=== PATIENT | female | born 1965 | race Asian ===

== ENCOUNTER 2018-03-31 17:38 | Inpatient (IN) | payer SELFPAY ==
[~2018-03-31] VITALS: Ht 154.9 cm; Wt 54.5 kg
[2018-03-31 18:26] LABS: BASOPHILS % (AUTO) 0.1 % (0.0-2.0); EOSINOPHILS % (AUTO) 0.1 % (1.0-6.0); HEMATOCRIT 39.6 % (36-46); HEMOGLOBIN 13.1 g/dL (12.0-16.0); LYMPHOCYTES # (AUTO) 0.7 K/uL (1.0-4.8); LYMPHOCYTES % (AUTO) 10.8 % (22.0-44.0); MEAN CORPUSCULAR HEMOGLOBIN 26.1 pg (26.0-34.0); MEAN CORPUSCULAR VOLUME 79 fL (80-100); MONOCYTES # (AUTO) 0.4 K/uL (0.1-1.0); MONOCYTES % (AUTO) 5.8 % (2.0-9.0); NEUTROPHILS # (AUTO) 5.1 K/uL (1.8-7.7); NEUTROPHILS % (AUTO) 83.2 % (40.0-70.0); PLATELET COUNT (AUTO) 426 K/uL (150-450); RED BLOOD CELL COUNT(AUTO) 5.02 MIL/uL (4.00-5.20); RED CELL DISTRIBUTION WIDTH 15.8 % (11.5-14.5)
[2018-03-31 18:39] LABS: ANION GAP 8 mmol/L (8-16); CALCIUM, TOTAL 9.3 mg/dL (8.8-10.5); CARBON DIOXIDE 27 mmol/L (22-29); CHLORIDE 100 mmol/L (98-107); CREATININE 0.67 mg/dL (0.60-1.30); GLOMERULAR FILTR. RATE CALC > 60 mL/min (>60); GLUCOSE,RANDOM 119 mg/dL (70-110); POTASSIUM 4.2 mmol/L (3.5-5.1); SODIUM SERUM 135 mmol/L (136-145); UREA NITROGEN, BLOOD 13 mg/dL (7-18)
[2018-03-31 18:44] LABS: ALANINE AMINOTRANSFERASE 16 U/L (12-78); ALBUMIN 2.8 g/dL (3.4-5.0); ALKALINE PHOSPHATASE 105 U/L (46-116); ASPARTATE AMINOTRANSFERASE 18 U/L (15-37); BILIRUBIN,TOTAL 0.4 mg/dL (0.1-1.0); LIPASE 42 U/L (73-393); TOTAL PROTEIN, SERUM 7.5 g/dL (6.4-8.2)
[2018-03-31] MEDS ORDERED: KETOROLAC TROMETHAMINE 30 MG/ML VIAL IVP ONE (20:45)
[2018-03-31] MEDS ORDERED: BARIUM SULFATE 0.1% SUSPENSION 450 ML BOTTLE PO ONE ×2 (20:45→23:15)
[2018-03-31] MEDS ORDERED: ONDANSETRON HCL 4 MG/2 ML VIAL IVP ONE ×2 (20:45→22:30)
[2018-03-31] MEDS ORDERED: MORPHINE SULFATE 4 MG/ML SYRINGE IVP ONE ×2 (20:45→22:30)
[2018-03-31] MEDS ORDERED: KETOROLAC TROMETHAMINE 60 MG/2 ML VIAL IM ONE (21:30)
[2018-03-31] MEDS ORDERED: IPRATROPIUM BROMIDE 0.5 MG/2.5 ML NEB SOLUTION NEB ONE (22:30)
[2018-03-31] MEDS ORDERED: ALBUTEROL SULFATE 2.5 MG/0.5 ML NEB SOLUTION NEB ONE (22:30)
[2018-03-31 23:04] LABS: APPEARANCE,URINE CLOUDY (CLEAR); GLUCOSE, URINE (UA) NEGATIVE (NEGATIVE); KETONES,URINE TRACE mg/dL (NEGATIVE); LEUKOCYTE ESTERASE ,URINE SMALL (NEGATIVE); NITRATE,URINE POSITIVE (NEGATIVE); OCCULT BLOOD,URINE NEGATIVE (NEGATIVE); PROTEIN,URINE POS 1+ (NEGATIVE)
[2018-03-31 23:12] LABS: BILIRUBIN,URINE PRELIM. POSITIVE (NEGATIVE)
[2018-03-31 23:41] LABS: BACTERIA,URINE Few /HPF (None Seen); MUCUS,URINE Many LPF (None Seen); RBC,URINE 0-2 /HPF (0-2); SQUAMOUS EPITHELIAL CELL,UR Moderate /LPF (None Seen)
[2018-03-31 23:42] LABS: HYALINE CASTS, URINE 0-2 /LPF (None Seen)
[2018-04-01 00:21] LABS: ABG A-A DIFF O2 143.5 mmHg (10-20.0); ABG BASE EXCESS -1.4 mmol/L (-2.0-3.0); ABG CARBOXYHEMOGLOBIN 2.2 % (0.0-1.5); ABG HCO3 23.7 mmol/L (22.0-26.0); ABG METHEMOGLOBIN 0.2 % (0.0-1.5); ABG OXYGEN SATURATION 95.7 % (95.0-98.0); ABG OXYHEMOGLOBIN 93.4 % (94.0-100.0); ABG PCO2 34 mmHg (35-45); ABG PH 7.446 (7.35-7.450); ABG TOTAL HEMOGLOBIN 12.9 G/dL (12.0-18.0); PO2, ARTERIAL BG 74.8 mmHg (84.0-92.0); SOURCE, BLOOD GAS ARTERIAL; TEMPERATURE, FAHRENHEIT, BG 97.2 FAHREN (96.0-98.6)
[2018-04-01 00:22] LABS: O2 DEVICE,BLOOD GAS CANNULA (ROOM AIR); SITE, BLOOD GAS RT BRACHIAL
[2018-04-01] MEDS ORDERED: SODIUM CHLORIDE 0.9% IV ONE (02:45)
[2018-04-01] MEDS ORDERED: HYDROmorphone 2 MG/ML SYRINGE IVP PRN (03:00)
[2018-04-01] MEDS ORDERED: 0.9% SODIUM CHLORIDE 10 ML SYRINGE IVP PRN (03:00)
[2018-04-01] MEDS ORDERED: ONDANSETRON HCL 4 MG/2 ML VIAL IVP PRN (03:00)
[2018-04-01] MEDS ORDERED: SODIUM CHLORIDE 0.45% 1,000 ML IV ONE (03:00)
[2018-04-01] MEDS ORDERED: PIPERACILLIN/TAZO 3.375 GM/D5W 50 ML IV ONE (03:00)
[2018-04-01] MEDS ORDERED: MetroNIDAZOLE 750 MG/NACL 150 ML IV ONE (04:15)
[2018-04-01] MEDS ORDERED: POTASSIUM CHL 20 MEQ/D5-0.45NS 1,000 ML IV SCH (06:00)
[2018-04-01] MEDS ORDERED: SODIUM CHLORIDE 0.9% 100 ML IV ONE (06:00)
[2018-04-01 08:09] VITALS: BP 107/60
[2018-04-01 08:24] LABS: BASOPHILS % (AUTO) 0.1 % (0.0-2.0); EOSINOPHILS % (AUTO) 0.1 % (1.0-6.0); HEMOGLOBIN 12.1 g/dL (12.0-16.0); LYMPHOCYTES # (AUTO) 0.9 K/uL (1.0-4.8); LYMPHOCYTES % (AUTO) 8.6 % (22.0-44.0); MEAN CORPUSCULAR HEMOGLOBIN 26.3 pg (26.0-34.0); MEAN CORPUSCULAR HGB CONC 33.7 G/dL (31.0-37.0); MEAN CORPUSCULAR VOLUME 78 fL (80-100); MONOCYTES # (AUTO) 0.4 K/uL (0.1-1.0); MONOCYTES % (AUTO) 3.6 % (2.0-9.0); NEUTROPHILS # (AUTO) 9.4 K/uL (1.8-7.7); PLATELET COUNT (AUTO) 373 K/uL (150-450); RED BLOOD CELL COUNT(AUTO) 4.62 MIL/uL (4.00-5.20); RED CELL DISTRIBUTION WIDTH 15.8 % (11.5-14.5)
[2018-04-01 08:25] LABS: NEUTROPHILS % (AUTO) 87.6 % (40.0-70.0)
[2018-04-01 08:34] LABS: ANION GAP 9 mmol/L (8-16); CALCIUM, TOTAL 8.6 mg/dL (8.8-10.5); CARBON DIOXIDE 25 mmol/L (22-29); CHLORIDE 99 mmol/L (98-107); CREATININE 0.89 mg/dL (0.60-1.30); GLOMERULAR FILTR. RATE CALC > 60 mL/min (>60); GLUCOSE,RANDOM 127 mg/dL (70-110); POTASSIUM 3.8 mmol/L (3.5-5.1); SODIUM SERUM 133 mmol/L (136-145); UREA NITROGEN, BLOOD 16 mg/dL (7-18)
[2018-04-01 08:35] LABS: INR 1.1 (0.9-1.1); PROTHROMBIN TIME 11.6 SEC (9.4-11.6)
[2018-04-01 08:40] LABS: ALANINE AMINOTRANSFERASE 13 U/L (12-78); ALBUMIN 2.3 g/dL (3.4-5.0); ALKALINE PHOSPHATASE 88 U/L (46-116); ASPARTATE AMINOTRANSFERASE 13 U/L (15-37); BILIRUBIN,TOTAL 0.5 mg/dL (0.1-1.0); TOTAL PROTEIN, SERUM 6.7 g/dL (6.4-8.2)
[2018-04-01] MEDS ORDERED: RINGERS SOLUTION,LACTATED 1,000 ML IV ONE ×2 (08:42→08:45)
[2018-04-01] MEDS ORDERED: CefoTEtan DISOD 2 GM/DEXTROSE 50 ML IV ONE (09:09)
[2018-04-01] MEDS ORDERED: MORPHINE SULFATE 2 MG/ML SYRINGE IVP PRN (09:45)
[2018-04-01] MEDS ORDERED: ACETAMINOPHEN 325 MG TABLET PO PRN (09:45)
[2018-04-01] MEDS ORDERED: DEXTROSE 5%-0.45% SODIUM CHL 1,000 ML IV SCH (10:00)
[2018-04-01] MEDS ORDERED: PIPERACILLIN/TAZO 3.375 GM/D5W 50 ML IV SCH (10:00)
[2018-04-01] MEDS ORDERED: MEPERIDINE HCL/PF 25 MG/0.5 ML AMP IVP PRN (10:15)
[2018-04-01] MEDS ORDERED: FentaNYL CITRATE-PF 100 MCG/2 ML VIAL ONE ×2 (11:08→11:23)
[2018-04-01] MEDS: FentaNYL CITRATE-PF 100 MCG/2 ML VIAL IVP PRN ×4 (11:12→11:35)
[2018-04-01] MEDS ORDERED: MEPERIDINE HCL/PF 25 MG/0.5 ML AMP ONE (11:17)
[2018-04-01] MEDS ORDERED: HYDROmorphone 2 MG/ML SYRINGE ONE (11:29)
[2018-04-01] MEDS: HYDROmorphone 2 MG/ML SYRINGE IVP PRN ×2 (11:31→11:45)
[2018-04-01] MEDS: ONDANSETRON HCL 4 MG/2 ML VIAL IVP PRN ×2 (12:20→20:03)
[2018-04-01 12:27] VITALS: BP 122/76
[2018-04-01] MEDS: PANTOPRAZOLE SODIUM 40 MG/VIAL IVP SCH (14:10)
[2018-04-01] MEDS: MORPHINE SULFATE 4 MG/ML SYRINGE IVP PRN ×4 (14:10→23:04)
[2018-04-01] MEDS: PIPERACILLIN/TAZO 3.375 GM/D5W 50 ML IV SCH ×3 (14:11→23:04)
[2018-04-01 15:39] VITALS: BP 113/61
[2018-04-01] MEDS: SODIUM CHLORIDE 0.9% 1,000 ML IV SCH (16:42)
[2018-04-01] MEDS: OXYGEN THERAPY IH SCH (20:05)
[2018-04-01 20:15] VITALS: BP 113/61
[2018-04-01 23:52] VITALS: BP 119/76
[2018-04-02] MEDS: MORPHINE SULFATE 4 MG/ML SYRINGE IVP PRN ×8 (02:00→23:15)
[2018-04-02 04:37] LABS: AMPHET/METH SCREEN,URINE POSITIVE (NEGATIVE); BARBITURATE SCREEN, URINE NEGATIVE (NEGATIVE); BENZODIAZEPINES SCREEN,URINE POSITIVE (NEGATIVE); CANNABINOID SCREEN,URINE NEGATIVE (NEGATIVE); COCAINE SCREEN,URINE NEGATIVE (NEGATIVE); METHADONE SCREEN, URINE NEGATIVE (NEGATIVE); OPIATE SCREEN,URINE POSITIVE (NEGATIVE); PHENCYCLIDINE SCREEN,URINE NEGATIVE (NEGATIVE)
[2018-04-02] MEDS: PIPERACILLIN/TAZO 3.375 GM/D5W 50 ML IV SCH ×4 (05:06→23:10)
[2018-04-02] MEDS ORDERED: HYDROmorphone 2 MG/ML SYRINGE IVP ONE (05:21)
[2018-04-02] MEDS ORDERED: ONDANSETRON HCL 4 MG/2 ML VIAL IVP ONE (05:21)
[2018-04-02] MEDS ORDERED: FentaNYL CITRATE-PF 250 MCG/5 ML VIAL IVP ONE (05:21)
[2018-04-02] MEDS ORDERED: NEOSTIGMINE METHYLSULFATE 1 MG/ML 10 ML VIAL IVP ONE (05:21)
[2018-04-02] MEDS ORDERED: SUCCINYLCHOLINE CHLORIDE 20 MG/ML 10 ML VIAL IVP ONE (05:21)
[2018-04-02] MEDS ORDERED: GLYCOPYRROLATE 0.2 MG/ML VIAL IM ONE (05:21)
[2018-04-02] MEDS ORDERED: MIDAZOLAM HCL 2 MG/2 ML VIAL IVP ONE (05:21)
[2018-04-02] MEDS ORDERED: ROCURONIUM BROMIDE 10 MG/ML 5 ML VIAL IVP ONE (05:21)
[2018-04-02] MEDS ORDERED: PROPOFOL 1% 20 ML VIAL IVP ONE (05:21)
[2018-04-02] MEDS ORDERED: LIDOCAINE HCL/PF 2% 5 ML VIAL IM ONE (05:21)
[2018-04-02] MEDS: OXYGEN THERAPY IH SCH ×2 (08:00→20:28)
[2018-04-02 08:11] LABS: BASOPHILS % (AUTO) 0.3 % (0.0-2.0); EOSINOPHILS % (AUTO) 0.1 % (1.0-6.0); HEMATOCRIT 38.2 % (36-46); LYMPHOCYTES # (AUTO) 0.7 K/uL (1.0-4.8); LYMPHOCYTES % (AUTO) 6.4 % (22.0-44.0); MEAN CORPUSCULAR HEMOGLOBIN 26.3 pg (26.0-34.0); MEAN CORPUSCULAR HGB CONC 33.9 G/dL (31.0-37.0); MEAN CORPUSCULAR VOLUME 78 fL (80-100); MONOCYTES # (AUTO) 0.2 K/uL (0.1-1.0); MONOCYTES % (AUTO) 2.3 % (2.0-9.0); NEUTROPHILS # (AUTO) 9.6 K/uL (1.8-7.7); NEUTROPHILS % (AUTO) 90.9 % (40.0-70.0); PLATELET COUNT (AUTO) 348 K/uL (150-450); RED BLOOD CELL COUNT(AUTO) 4.92 MIL/uL (4.00-5.20); RED CELL DISTRIBUTION WIDTH 16.1 % (11.5-14.5)
[2018-04-02] MEDS: ENOXAPARIN SODIUM 40 MG/0.4 ML PF SYRINGE SQ SCH (08:18)
[2018-04-02] MEDS: PANTOPRAZOLE SODIUM 40 MG/VIAL IVP SCH (08:18)
[2018-04-02] MEDS: SODIUM CHLORIDE 0.9% 1,000 ML IV SCH ×2 (08:18→23:10)
[2018-04-02 08:22] VITALS: BP 134/71
[2018-04-02 08:34] LABS: ALANINE AMINOTRANSFERASE 31 U/L (12-78); ALBUMIN 2.1 g/dL (3.4-5.0); ALKALINE PHOSPHATASE 106 U/L (46-116); ANION GAP 9 mmol/L (8-16); ASPARTATE AMINOTRANSFERASE 42 U/L (15-37); BILIRUBIN,TOTAL 0.5 mg/dL (0.1-1.0); CALCIUM, TOTAL 8.9 mg/dL (8.8-10.5); CARBON DIOXIDE 25 mmol/L (22-29); CHLORIDE 102 mmol/L (98-107); CREATININE 0.78 mg/dL (0.60-1.30); GLOMERULAR FILTR. RATE CALC > 60 mL/min (>60); GLUCOSE,RANDOM 101 mg/dL (70-110); POTASSIUM 3.9 mmol/L (3.5-5.1); SODIUM SERUM 136 mmol/L (136-145); TOTAL PROTEIN, SERUM 6.9 g/dL (6.4-8.2); UREA NITROGEN, BLOOD 11 mg/dL (7-18)
[2018-04-02 11:58] VITALS: BP 131/70
[2018-04-02 16:00] VITALS: BP 119/72
[2018-04-02 19:34] VITALS: BP 137/91
[2018-04-03 00:13] VITALS: BP 134/89
[2018-04-03] MEDS: MORPHINE SULFATE 4 MG/ML SYRINGE IVP PRN ×6 (02:10→22:51)
[2018-04-03 04:00] VITALS: BP 121/64
[2018-04-03] MEDS: PIPERACILLIN/TAZO 3.375 GM/D5W 50 ML IV SCH ×4 (05:16→22:51)
[2018-04-03 07:41] VITALS: BP 123/68
[2018-04-03] MEDS: OXYGEN THERAPY IH SCH ×2 (08:00→21:42)
[2018-04-03 09:16] LABS: EOSINOPHILS % (AUTO) 0 % (1.0-6.0); HEMATOCRIT 31.3 % (36-46); HEMOGLOBIN 10.4 g/dL (12.0-16.0); LYMPHOCYTES # (AUTO) 0.6 K/uL (1.0-4.8); LYMPHOCYTES % (AUTO) 5.3 % (22.0-44.0); MEAN CORPUSCULAR HEMOGLOBIN 25.9 pg (26.0-34.0); MEAN CORPUSCULAR HGB CONC 33.4 G/dL (31.0-37.0); MEAN CORPUSCULAR VOLUME 78 fL (80-100); MONOCYTES # (AUTO) 0.3 K/uL (0.1-1.0); MONOCYTES % (AUTO) 2.1 % (2.0-9.0); NEUTROPHILS # (AUTO) 11.4 K/uL (1.8-7.7); PLATELET COUNT (AUTO) 378 K/uL (150-450); RED BLOOD CELL COUNT(AUTO) 4.02 MIL/uL (4.00-5.20); RED CELL DISTRIBUTION WIDTH 15.5 % (11.5-14.5)
[2018-04-03 09:19] LABS: NEUTROPHILS % (AUTO) 92.6 % (40.0-70.0)
[2018-04-03 09:27] LABS: ALANINE AMINOTRANSFERASE 23 U/L (12-78); ALBUMIN 1.8 g/dL (3.4-5.0); ALKALINE PHOSPHATASE 90 U/L (46-116); ANION GAP 20 mmol/L (8-16); ASPARTATE AMINOTRANSFERASE 28 U/L (15-37); BILIRUBIN,TOTAL 0.4 mg/dL (0.1-1.0); CALCIUM, TOTAL 8.7 mg/dL (8.8-10.5); CARBON DIOXIDE 17 mmol/L (22-29); CHLORIDE 104 mmol/L (98-107); CREATININE 0.65 mg/dL (0.60-1.30); GLOMERULAR FILTR. RATE CALC > 60 mL/min (>60); GLUCOSE,RANDOM 76 mg/dL (70-110); POTASSIUM 3.1 mmol/L (3.5-5.1); SODIUM SERUM 141 mmol/L (136-145); TOTAL PROTEIN, SERUM 6.5 g/dL (6.4-8.2); UREA NITROGEN, BLOOD 13 mg/dL (7-18)
[2018-04-03] MEDS ORDERED: DIATRIZOATE MEGLU/SOD 660/100 MG/ML 120 ML BOTTLE ONE (09:53)
[2018-04-03] MEDS ORDERED: MORPHINE SULFATE 2 MG/ML SYRINGE IM ONE (10:30)
[2018-04-03] MEDS: POTASSIUM CHL 10 MEQ/WATER 50 ML IV SCH ×6 (12:21→21:42)
[2018-04-03] MEDS: PANTOPRAZOLE SODIUM 40 MG/VIAL IVP SCH (12:21)
[2018-04-03] MEDS: ENOXAPARIN SODIUM 40 MG/0.4 ML PF SYRINGE SQ SCH (12:21)
[2018-04-03 16:00] VITALS: BP 123/76
[2018-04-03 19:25] VITALS: BP 132/77
[2018-04-03] MEDS: SODIUM CHLORIDE 0.9% 1,000 ML IV SCH (21:43)
[2018-04-03 23:30] VITALS: BP 134/76
[2018-04-04] MEDS: POTASSIUM CHL 10 MEQ/WATER 50 ML IV SCH ×2 (00:19→01:51)
[2018-04-04 04:20] VITALS: BP 131/76
[2018-04-04] MEDS: MORPHINE SULFATE 4 MG/ML SYRINGE IVP PRN ×4 (05:05→17:55)
[2018-04-04] MEDS: PIPERACILLIN/TAZO 3.375 GM/D5W 50 ML IV SCH ×4 (05:05→22:21)
[2018-04-04 06:09] LABS: ALANINE AMINOTRANSFERASE 22 U/L (12-78); ALBUMIN 1.9 g/dL (3.4-5.0); ALKALINE PHOSPHATASE 81 U/L (46-116); ANION GAP 5 mmol/L (8-16); ASPARTATE AMINOTRANSFERASE 25 U/L (15-37); BILIRUBIN,TOTAL 0.3 mg/dL (0.1-1.0); CALCIUM, TOTAL 8.8 mg/dL (8.8-10.5); CARBON DIOXIDE 25 mmol/L (22-29); CHLORIDE 107 mmol/L (98-107); CREATININE 0.68 mg/dL (0.60-1.30); GLOMERULAR FILTR. RATE CALC > 60 mL/min (>60); GLUCOSE,RANDOM 133 mg/dL (70-110); POTASSIUM 4.6 mmol/L (3.5-5.1); SODIUM SERUM 137 mmol/L (136-145); TOTAL PROTEIN, SERUM 6.4 g/dL (6.4-8.2); UREA NITROGEN, BLOOD 10 mg/dL (7-18)
[2018-04-04 06:41] LABS: BASOPHILS % (AUTO) 0.3 % (0.0-2.0); EOSINOPHILS % (AUTO) 0.5 % (1.0-6.0); LYMPHOCYTES # (AUTO) 1.1 K/uL (1.0-4.8); LYMPHOCYTES % (AUTO) 12.9 % (22.0-44.0); MEAN CORPUSCULAR HEMOGLOBIN 25.8 pg (26.0-34.0); MEAN CORPUSCULAR HGB CONC 33.4 G/dL (31.0-37.0); MEAN CORPUSCULAR VOLUME 77 fL (80-100); MONOCYTES # (AUTO) 0.4 K/uL (0.1-1.0); MONOCYTES % (AUTO) 4.9 % (2.0-9.0); NEUTROPHILS # (AUTO) 6.9 K/uL (1.8-7.7); NEUTROPHILS % (AUTO) 81.4 % (40.0-70.0); PLATELET COUNT (AUTO) 371 K/uL (150-450); RED BLOOD CELL COUNT(AUTO) 4.27 MIL/uL (4.00-5.20); RED CELL DISTRIBUTION WIDTH 15.8 % (11.5-14.5)
[2018-04-04] MEDS: PANTOPRAZOLE SODIUM 40 MG/VIAL IVP SCH (07:53)
[2018-04-04] MEDS: ENOXAPARIN SODIUM 40 MG/0.4 ML PF SYRINGE SQ SCH (07:54)
[2018-04-04] MEDS: OXYGEN THERAPY IH SCH ×2 (07:54→20:00)
[2018-04-04 07:56] VITALS: BP 131/74
[2018-04-04 11:54] VITALS: BP 142/80
[2018-04-04] MEDS: SODIUM CHLORIDE 0.9% 1,000 ML IV SCH (13:54)
[2018-04-04 15:10] VITALS: BP 138/90
[2018-04-04] MEDS: METHADONE HCL 10 MG TABLET PO SCH (20:06)
[2018-04-04 20:10] VITALS: BP 138/65
[2018-04-04 23:35] VITALS: BP 110/62
[2018-04-05] MEDS: MORPHINE SULFATE 4 MG/ML SYRINGE IVP PRN ×2 (02:24→05:55)
[2018-04-05 05:00] VITALS: BP 122/88
[2018-04-05] MEDS: PIPERACILLIN/TAZO 3.375 GM/D5W 50 ML IV SCH ×4 (05:08→23:32)
[2018-04-05 07:01] LABS: ANION GAP 10 mmol/L (8-16); CALCIUM, TOTAL 9.2 mg/dL (8.8-10.5); CARBON DIOXIDE 25 mmol/L (22-29); CHLORIDE 103 mmol/L (98-107); CREATININE 0.77 mg/dL (0.60-1.30); GLOMERULAR FILTR. RATE CALC > 60 mL/min (>60); GLUCOSE,RANDOM 120 mg/dL (70-110); POTASSIUM 3.6 mmol/L (3.5-5.1); SODIUM SERUM 138 mmol/L (136-145); UREA NITROGEN, BLOOD 6 mg/dL (7-18)
[2018-04-05 07:20] VITALS: BP 116/69
[2018-04-05 07:25] LABS: BASOPHILS % (AUTO) 0.4 % (0.0-2.0); EOSINOPHILS % (AUTO) 2.8 % (1.0-6.0); HEMATOCRIT 34.7 % (36-46); HEMOGLOBIN 11.7 g/dL (12.0-16.0); LYMPHOCYTES # (AUTO) 1.4 K/uL (1.0-4.8); LYMPHOCYTES % (AUTO) 17.9 % (22.0-44.0); MEAN CORPUSCULAR HEMOGLOBIN 26.1 pg (26.0-34.0); MEAN CORPUSCULAR HGB CONC 33.7 G/dL (31.0-37.0); MEAN CORPUSCULAR VOLUME 78 fL (80-100); MONOCYTES # (AUTO) 0.5 K/uL (0.1-1.0); MONOCYTES % (AUTO) 5.6 % (2.0-9.0); NEUTROPHILS # (AUTO) 5.9 K/uL (1.8-7.7); NEUTROPHILS % (AUTO) 73.3 % (40.0-70.0); PLATELET COUNT (AUTO) 393 K/uL (150-450); RED BLOOD CELL COUNT(AUTO) 4.48 MIL/uL (4.00-5.20); RED CELL DISTRIBUTION WIDTH 15.9 % (11.5-14.5)
[2018-04-05] MEDS: PANTOPRAZOLE SODIUM 40 MG/VIAL IVP SCH (08:17)
[2018-04-05] MEDS: ENOXAPARIN SODIUM 40 MG/0.4 ML PF SYRINGE SQ SCH (08:17)
[2018-04-05] MEDS: METHADONE HCL 10 MG TABLET PO SCH (08:17)
[2018-04-05] MEDS: OXYGEN THERAPY IH SCH ×2 (08:17→19:59)
[2018-04-05 11:20] VITALS: BP 116/78
[2018-04-05 15:55] VITALS: BP 104/68
[2018-04-05] MEDS: HYDROCODONE/ACETAMINOPHEN 5-325 MG TABLET PO PRN (18:19)
[2018-04-05 19:43] VITALS: BP 97/59
[2018-04-05 23:07] VITALS: BP 108/70
[2018-04-06] MEDS: HYDROCODONE/ACETAMINOPHEN 5-325 MG TABLET PO PRN ×3 (01:10→15:35)
[2018-04-06] MEDS: ONDANSETRON HCL 4 MG/2 ML VIAL IVP PRN (02:41)
[2018-04-06] MEDS: PIPERACILLIN/TAZO 3.375 GM/D5W 50 ML IV SCH ×2 (05:39→11:06)
[2018-04-06 06:11] LABS: BASOPHILS % (AUTO) 0.4 % (0.0-2.0); EOSINOPHILS % (AUTO) 3.6 % (1.0-6.0); HEMATOCRIT 45.1 % (36-46); HEMOGLOBIN 15.2 g/dL (12.0-16.0); LYMPHOCYTES # (AUTO) 1.8 K/uL (1.0-4.8); LYMPHOCYTES % (AUTO) 17.6 % (22.0-44.0); MEAN CORPUSCULAR HEMOGLOBIN 26.3 pg (26.0-34.0); MEAN CORPUSCULAR HGB CONC 33.8 G/dL (31.0-37.0); MEAN CORPUSCULAR VOLUME 78 fL (80-100); MONOCYTES # (AUTO) 0.5 K/uL (0.1-1.0); MONOCYTES % (AUTO) 4.7 % (2.0-9.0); NEUTROPHILS # (AUTO) 7.6 K/uL (1.8-7.7); NEUTROPHILS % (AUTO) 73.7 % (40.0-70.0); PLATELET COUNT (AUTO) 485 K/uL (150-450); RED CELL DISTRIBUTION WIDTH 16.1 % (11.5-14.5)
[2018-04-06 06:28] LABS: ANION GAP 10 mmol/L (8-16); CALCIUM, TOTAL 9.7 mg/dL (8.8-10.5); CARBON DIOXIDE 28 mmol/L (22-29); CHLORIDE 102 mmol/L (98-107); CREATININE 0.85 mg/dL (0.60-1.30); GLOMERULAR FILTR. RATE CALC > 60 mL/min (>60); GLUCOSE,RANDOM 110 mg/dL (70-110); POTASSIUM 4.2 mmol/L (3.5-5.1); SODIUM SERUM 140 mmol/L (136-145); UREA NITROGEN, BLOOD 7 mg/dL (7-18)
[2018-04-06 07:27] VITALS: BP 91/61
[2018-04-06] MEDS: METHADONE HCL 10 MG TABLET PO SCH (08:00)
[2018-04-06] MEDS: ENOXAPARIN SODIUM 40 MG/0.4 ML PF SYRINGE SQ SCH (08:01)
[2018-04-06] MEDS: PANTOPRAZOLE SODIUM 40 MG/VIAL IVP SCH (08:01)
[2018-04-06 12:00] VITALS: BP 98/65
[2018-04-06 15:41] VITALS: BP 93/66
== END 2018-04-06 17:00 | disposition home or self-care (01) | DRG 326 ==
LOC: EMS 17:39 → 6N 04-01 05:46
PROVIDERS: ADMIT Internal Medicine; ATTEND Internal Medicine
PROC: 0DB60ZZ Excision of Stomach, Open Approach (ICD-10-PCS; principal; 2018-04-01 09:00)
DX: K25.5 Chronic or unspecified gastric ulcer with perforation (principal); E43 Unspecified severe protein-calorie malnutrition; K65.0 Generalized (acute) peritonitis; F19.10 Other psychoactive substance abuse, uncomplicated; K44.9 Diaphragmatic hernia without obstruction or gangrene; H26.8 Other specified cataract; F17.200 Nicotine dependence, unspecified, uncomplicated; F11.10 Opioid abuse, uncomplicated; F15.10 Other stimulant abuse, uncomplicated; B35.4 Tinea corporis; B19.20 Unspecified viral hepatitis C without hepatic coma; Z71.6 Tobacco abuse counseling; Z79.899 Other long term (current) drug therapy; Z68.22 Body mass index [BMI] 22.0-22.9, adult
CPT/HCPCS: 36245; 74176; 74247; 76705; 76937; 80307; 82805; 87040; 87081; 88307; 88312; 93005; 94640; 96365; 96367; 96372; 96375; 99285; C9113; G0238; J0330; J1170; J1650; J1885; J2250; J2270; J2405; J2543; J2704; J3010; J3480; J3490; J7030; J7050; J7120

== ENCOUNTER 2025-06-11 22:12 | Inpatient (IN) | payer MEDICAID ==
[~2025-06-11] VITALS: Ht 154.9 cm; Wt 59.1 kg
[~2025-06-11 22:12] MED LIST: CEPH-558 PO; DOXY-354 PO
[2025-06-11 22:56] LABS: PLATELET COUNT (AUTO) 287 K/uL (150-450); RED BLOOD CELL COUNT(AUTO) 4.11 MIL/uL (4.00-5.20); RED CELL DISTRIBUTION WIDTH 15.2 % (11.5-14.5); WHITE BLOOD COUNT (AUTO) 6.6 K/uL (4.5-11.0)
[2025-06-11] MEDS ORDERED: 0.9% SODIUM CHLORIDE 10 ML SYRINGE IVP PRN (23:00)
[2025-06-11 23:05] LABS: CALCIUM, TOTAL 8.7 mg/dL (8.8-10.5); CREATININE 0.63 mg/dL (0.60-1.30); GLOMERULAR FILTR. RATE CALC > 60 mL/min (>60); GLUCOSE,RANDOM 95 mg/dL (70-110); SODIUM SERUM 141 mmol/L (136-145); UREA NITROGEN, BLOOD 16 mg/dL (7-18)
[2025-06-11] MEDS: VANCOMYCIN 1GM/WATER(PEG/NADA) 200 ML IV ONE (23:08)
[2025-06-11] MEDS: SODIUM CHLORIDE 0.9% 1,200 ML IV ONE (23:08)
[2025-06-11 23:15] LABS: LACTIC ACID 1.3 mmol/L (0.4-2.0)
[2025-06-11] MEDS ORDERED: ALBUTEROL SULFATE 2.5 MG/0.5 ML NEB SOLUTION NEB PRN (23:30)
[2025-06-11] MEDS ORDERED: MAGNESIUM HYDROXIDE SUSPENSION 30 ML UDCUP PO PRN (23:30)
[2025-06-11] MEDS ORDERED: ACETAMINOPHEN 325 MG TABLET PO PRN (23:30)
[2025-06-11] MEDS ORDERED: ZOLPIDEM TARTRATE 5 MG TABLET PO PRN (23:30)
[2025-06-11] MEDS ORDERED: IPRATROPIUM BROMIDE 0.5 MG/2.5 ML NEB SOLUTION NEB PRN (23:30)
[2025-06-11] MEDS ORDERED: BISACODYL 10 MG RECTAL RECTAL SUPPOSITORY PR PRN (23:30)
[2025-06-12] MEDS ORDERED: IOHEXOL 350 MG/ML 100 ML VIAL ONE (00:15)
[2025-06-12] MEDS ORDERED: SODIUM CHLORIDE 0.9% 100 ML ONE (00:16)
[2025-06-12] MEDS: HEPARIN SODIUM,PORCINE 5,000 UNITS/ML VIAL SQ SCH (00:16)
[2025-06-12 01:00] VITALS: BP 105/65; PULSE 82; RESP 18; TEMP 98; O2SAT 100
[2025-06-12] MEDS: INFLUENZA VIRUS VACCINE TVS (6MO+) 2025-26/PF 45 MCG/0.5 ML SYRINGE IM. ONE (01:45)
[2025-06-12 02:57] LABS: APPEARANCE,URINE CLEAR (CLEAR); GLUCOSE, URINE (UA) NEGATIVE (NEGATIVE); LEUKOCYTE ESTERASE ,URINE NEGATIVE (NEGATIVE); NITRATE,URINE NEGATIVE (NEGATIVE); OCCULT BLOOD,URINE NEGATIVE (NEGATIVE); SPECIFIC GRAVITIY, URINE 1.020 (1.003-1.030)
[2025-06-12 04:15] VITALS: BP 101/55; PULSE 86; RESP 18; TEMP 98; O2SAT 99
[2025-06-12 07:53] VITALS: BP 98/52; PULSE 68; RESP 17; TEMP 98.4; O2SAT 98
[2025-06-12] MEDS ORDERED: VANCOMYCIN 1GM/WATER(PEG/NADA) 200 ML IV SCH (08:00)
[2025-06-12] MEDS ORDERED: SODIUM CHLORIDE 0.9% 0 ML IV ONE (08:54)
[2025-06-12] MEDS: VANCOMYCIN 750 MG/WATER(PEG) 150 ML IV SCH (09:18)
[2025-06-12] MEDS: PANTOPRAZOLE SODIUM 40 MG DR TABLET PO SCH (09:19)
[2025-06-12] MEDS: MORPHINE SULFATE 4 MG/ML SYRINGE IVP PRN (09:19)
[2025-06-12] MEDS: ONDANSETRON HCL 4 MG/2 ML VIAL IVP PRN (09:20)
[2025-06-12] MEDS: HYDROCODONE/ACETAMINOPHEN 5-325 MG TABLET PO PRN (12:51)
[2025-06-12] MEDS ORDERED: ACETAMINOPHEN 325 MG TABLET PO PRN (15:15)
[2025-06-12] MEDS ORDERED: IBUPROFEN 600 MG TABLET PO PRN (15:15)
[2025-06-12] MEDS ORDERED: DICYCLOMINE HCL 10 MG CAPSULE PO PRN (15:15)
[2025-06-12] MEDS ORDERED: MAG HYDROX/ALUMINUM HYD/SIMETH ES 30 ML SUSPENSION UDCUP PO PRN (15:15)
[2025-06-12] MEDS ORDERED: PROMETHAZINE HCL 25 MG TABLET PO PRN (15:15)
[2025-06-12] MEDS ORDERED: LOPERAMIDE HCL 2 MG/15 ML SUSPENSION UDCUP PO PRN (15:15)
[2025-06-12 15:45] VITALS: BP 128/78; PULSE 65; RESP 17; TEMP 97.8; O2SAT 99
[2025-06-12] MEDS: BACLOFEN 10 MG TABLET PO PRN (15:57)
[2025-06-12] MEDS: SODIUM CHLORIDE 0.45% 1,000 ML IV SCH (16:01)
[2025-06-12 20:25] VITALS: BP 100/68; PULSE 85; RESP 18; TEMP 97.7; O2SAT 98
[2025-06-12 23:53] VITALS: BP 82/54; PULSE 88; RESP 18; TEMP 98; O2SAT 99
[2025-06-13] MEDS ORDERED: SODIUM CHLORIDE 0.9% 500 ML IV ONE ×2 (00:28→20:02)
[2025-06-13] MEDS: SODIUM CHLORIDE 0.9% 500 ML IV ONE ×3 (00:30→20:33)
[2025-06-13] MEDS: SODIUM CHLORIDE 0.9% 1,000 ML IV ONE (00:47)
[2025-06-13 01:34] VITALS: BP 90/57; PULSE 75; RESP 14; O2SAT 99
[2025-06-13 04:00] VITALS: PULSE 76
[2025-06-13 04:29] VITALS: BP 133/64; PULSE 76; RESP 16; TEMP 98.1; O2SAT 98
[2025-06-13] MEDS ORDERED: NOREPINEPHRINE 8 MG/0.9 % NACL 250 ML IV PRN (06:00)
[2025-06-13 08:00] VITALS: BP 107/69; PULSE 81; RESP 20; TEMP 97.6; O2SAT 96
[2025-06-13 13:08] LABS: CALCIUM, TOTAL 8.4 mg/dL (8.8-10.5); CREATININE 0.52 mg/dL (0.60-1.30); GLOMERULAR FILTR. RATE CALC > 60 mL/min (>60); GLUCOSE,RANDOM 122 mg/dL (70-110); SODIUM SERUM 139 mmol/L (136-145); UREA NITROGEN, BLOOD 5 mg/dL (7-18)
[2025-06-13 13:18] LABS: LACTIC ACID 2.7 mmol/L (0.4-2.0)
[2025-06-13] MEDS ORDERED: SODIUM CHLORIDE 0.9% 1,200 ML IV SCH (14:00)
[2025-06-13 15:00] VITALS: BP 117/69; PULSE 77; RESP 19; TEMP 98; O2SAT 97
[2025-06-13] MEDS ORDERED: POTASSIUM CHL 10 MEQ/WATER 50 ML IV PRN (15:15)
[2025-06-13] MEDS: POTASSIUM CHLORIDE 20 MEQ ER TABLET PO PRN (15:30)
[2025-06-13 20:50] VITALS: BP 108/75; PULSE 86; RESP 18; TEMP 99.1; O2SAT 94
[2025-06-13] MEDS: VANCOMYCIN 1GM/WATER(PEG/NADA) 200 ML IV SCH (20:54)
[2025-06-14 03:49] VITALS: BP 118/71; PULSE 89; RESP 18; TEMP 98.2; O2SAT 96
[2025-06-14 06:56] LABS: PLATELET COUNT (AUTO) 320 K/uL (150-450); RED BLOOD CELL COUNT(AUTO) 4.07 MIL/uL (4.00-5.20); RED CELL DISTRIBUTION WIDTH 15.0 % (11.5-14.5); WHITE BLOOD COUNT (AUTO) 5.5 K/uL (4.5-11.0)
[2025-06-14 07:27] LABS: ASPARTATE AMINOTRANSFERASE 16 U/L (15-37); CALCIUM, TOTAL 8.8 mg/dL (8.8-10.5); CREATININE 0.56 mg/dL (0.60-1.30); GLOMERULAR FILTR. RATE CALC > 60 mL/min (>60); GLUCOSE,RANDOM 110 mg/dL (70-110); SODIUM SERUM 144 mmol/L (136-145); TOTAL PROTEIN, SERUM 6.2 g/dL (6.4-8.2); UREA NITROGEN, BLOOD 8 mg/dL (7-18)
[2025-06-14 07:49] VITALS: BP 114/77; PULSE 75; RESP 16; TEMP 98.4; O2SAT 96
[2025-06-14 16:09] VITALS: BP 132/72; PULSE 109; RESP 16; TEMP 98.1; O2SAT 99
[2025-06-14] MEDS ORDERED: DOXY-354 PO (17:15)
== END 2025-06-14 18:20 | disposition home or self-care (01) | DRG 720 ==
LOC: EMS 22:12 → EDH 23:21 → 6S 06-12 00:46 → ICU 06-13 02:30 → 6S 06-13 12:30
PROVIDERS: ADMIT Hospitalist; ATTEND Hospitalist
PROC: 05H933Z Insertion of Infusion Device into Right Brachial Vein, Percutaneous Approach (ICD-10-PCS; principal; 2025-06-13)
PROC: B54MZZA Ultrasonography of Right Upper Extremity Veins, Guidance (ICD-10-PCS; 2025-06-13)
DX: A41.9 Sepsis, unspecified organism (principal); M72.6 Necrotizing fasciitis; L03.116 Cellulitis of left lower limb; T63.301A Toxic effect of unspecified spider venom, accidental (unintentional), initial encounter; I95.9 Hypotension, unspecified; F17.200 Nicotine dependence, unspecified, uncomplicated; F19.10 Other psychoactive substance abuse, uncomplicated; Z79.899 Other long term (current) drug therapy; Z71.6 Tobacco abuse counseling
CPT/HCPCS: 36245; 36569; 71045; 73701; 76937; 80048; 80053; 80202; 81003; 83605; 84132; 84145; 85025; 85379; 87040; 87081; 93005; 93971; 96365; 99285; G0378; J1644; J2270; J2405; J7030; J7040; J7050; 36415-L1; 36415-TC